=== PATIENT | female | born 1975 | race Caucasian/White ===

== ENCOUNTER 2019-08-20 21:03 | Emergency (ER) | payer BC, OTHER, SELFPAY ==
[2019-08-20] MEDS ORDERED: Sodium Chloride 0.9% 1,000 ML IV SCH (21:15)
[2019-08-20] MEDS ORDERED: Sodium Chloride 0.9% 10 ML Syringe FLUSH PRN (21:15)
[2019-08-20 22:25] LABS: ACETAMINOPHEN 0 ug/mL (10-30)
--- NOTE | 2019-08-21 00:14 | EDM.PDOCBH ---
ED HPI GENERAL MEDICAL PROBLEM - General Chief Complaint: Behavioral/Psych Stated Complaint: overdose on pills Time Seen by Provider: 08/20/19 21:10 Source of Information: Reports: Patient, Family History Limitations: Reports: No Limitations - History of Present Illness INITIAL COMMENTS - FREE TEXT/NARRATIVE: The patient presents with her for an overdose. She admits to taking trazadone and lunesta about 5 tonight. Her came home around 7 and found her in the bed snoring. He checked on her later and she tried to get up but could not and urinated on the floor. She also urinated in the bed. She has been out of work for 5 months and has been depressed. She did take the medication to try to kill herself. She has a history of depression. She never tried to do this before. She has not been nausea and did not vomit. She has no pain anywhere. Onset: Sudden Duration: Hour(s): Severity: Moderate Improves with: Reports: None Worsens with: Reports: None Associated Symptoms: Reports: Confusion. Denies: Cough, Fever/Chills, Headaches , Nausea/Vomiting, Shortness of Breath - Related Data Allergies Allergy/AdvReac Type Severity Reaction Status Date / Time Penicillins Allergy Other Verified 08/20/19 21:54 Home Meds: Home Meds Escitalopram Oxalate [Lexapro] 20 mg PO DAILY 06/01/18 [History] Eszopiclone [Lunesta] 3 mg PO DAILY 06/01/18 [History] FLUoxetine [PROzac] 1,020 mg PO DAILY 08/20/19 [History] Nabumetone [Relafen Ds] 500 mg PO DAILY 08/20/19 [History] rOPINIRole [Requip] 1 mg PO BEDTIME 08/20/19 [History] traZODone HCl [Trazodone HCl] 50 mg PO BEDTIME 08/20/19 [History] Past Medical History HEENT History: Reports: Impaired Vision Other HEENT History: Wears glasses Respiratory History: Reports: Asthma Gastrointestinal History: Reports: Other (See Below) Other Gastrointestinal History: gastric bypass - Past Surgical History HEENT Surgical History: Reports: Tonsillectomy GI Surgical History: Reports: Bariatric Procedure, Cholecystectomy, Hernia, Abdominal Social & Family History - Tobacco Use Smoking Status *Q: Unknown Ever Smoked - Recreational Drug Use Recreational Drug Use: No ED ROS GENERAL - Review of Systems Review Of Systems: See Below Constitutional: Reports: Malaise, Weakness, Fatigue HEENT: Reports: No Symptoms Respiratory: Reports: No Symptoms Cardiovascular: Reports: No Symptoms Endocrine: Reports: No Symptoms GI/Abdominal: Reports: No Symptoms : Reports: No Symptoms Musculoskeletal: Reports: No Symptoms Neurological: Reports: Confusion ED EXAM, BEHAVIORAL HEALTH - Physical Exam Exam: See Below Exam Limited By: Other (sleepy) General Appearance: Other (sleepy but she will wake and answer questions and follow commands) Ears: Normal External Exam Nose: Normal Inspection Head: Atraumatic, Normocephalic Neck: Normal Inspection Respiratory/Chest: No Respiratory Distress, Lungs Clear, Normal Breath Sounds Cardiovascular: Regular Rate, Rhythm, No Edema, No Murmur GI/Abdominal: Soft, Non-Tender, No Organomegaly, No Mass Back Exam: Normal Inspection Extremities: Normal Inspection EKG INTERPRETATION EKG Date: 08/21/19 Time: 21:22 Rhythm: NSR Rate (Beats/Min): 76 [place]: Normal P-Wave: Present QRS: Normal ST-T: Normal QT: Normal COURSE, BEHAVIORAL HEALTH COMP - Course Vital Signs: Last Vital Signs Temp 97.2 F 08/20/19 21:49 Pulse 62 08/21/19 05:01 Resp 16 08/21/19 06:00 BP 89/69 L 08/21/19 05:00 Pulse Ox 95 08/21/19 05:01 Orders, Labs, Meds: Active Orders 24 hr Category Date Time Status Cardiac Monitoring [RC] . DIRECTED Care 08/20/19 21:15 Active EKG Documentation Completion [RC] ASDIRECTED Care 08/21/19 00:18 Active EKG Documentation Completion [RC] STAT Care 08/20/19 21:16 Active Peripheral IV Care [RC] . DIRECTED Care 08/20/19 21:16 Active Sodium Chloride 0.9% [Normal Saline] 1,000 ml Med 08/20/19 21:15 Active IV ASDIRECTED Sodium Chloride 0.9% [Saline Flush] Med 08/20/19 21:15 Active 10 ml FLUSH ASDIRECTED PRN Peripheral IV Insertion Adult [OM.PC] Stat Oth 08/20/19 21:15 Ordered EKG 12 Lead [EK] Stat Ther 08/21/19 00:18 Ordered Medication Orders Sodium Chloride (Normal Saline) 1,000 mls @ 125 mls/hr IV ASDIRECTED BRANDI Last Admin: 08/20/19 21:35 Dose: 125 mls/hr Sodium Chloride (Saline Flush) 10 ml FLUSH ASDIRECTED PRN PRN Reason: Keep Vein Open Last Admin: 08/20/19 21:35 Dose: 10 ml Laboratory Tests 08/20/19 08/20/19 08/20/19 Range/Units 21:21 21:21 21:21 WBC 5.02 (3.98-10.04) K/mm3 RBC 4.92 (3.98-5.22) M/mm3 Hgb 15.1 (11.2-15.7) gm/dl Hct 45.3 H (34.1-44.9) % MCV 92.1 (79.4-94.8) fl MCH 30.7 (25.6-32.2) pg MCHC 33.3 (32.2-35.5) g/dl RDW Std Deviation 39.7 (36.4-46.3) fL Plt Count 215 (182-369) K/mm3 MPV 11.6 (9.4-12.3) fl Neut % (Auto) 56.7 (34.0-71.1) % Lymph % (Auto) 34.9 (19.3-51.7) % Lipscomb % (Auto) 6.4 (4.7-12.5) % Eos % (Auto) 1.4 (0.7-5.8) Baso % (Auto) 0.4 (0.1-1.2) % Neut # (Auto) 2.85 (1.56-6.13) K/mm3 Lymph # (Auto) 1.75 (1.18-3.74) K/mm3 Lipscomb # (Auto) 0.32 (0.24-0.36) K/mm3 Eos # (Auto) 0.07 (0.04-0.36) K/mm3 Baso # (Auto) 0.02 (0.01-0.08) K/mm3 Sodium 145 (136-145) mEq/L Potassium 4.0 (3.5-5.1) mEq/L Chloride 106 (98-107) mEq/L Carbon Dioxide 27 (21-32) mEq/L Anion Gap 16.0 H (5-15) BUN 10 (7-18) mg/dL Creatinine 0.9 (0.55-1.02) mg/dL Est Cr Clr Drug Dosing TNP Estimated GFR (MDRD) > 60 (>60) mL/min BUN/Creatinine Ratio 11.1 L (14-18) Glucose 103 (74-106) mg/dL Calcium 10.0 (8.5-10.1) mg/dL Total Bilirubin 0.8 (0.2-1.0) mg/dL AST 17 (15-37) U/L ALT 21 (14-59) U/L Alkaline Phosphatase 96 (46-116) U/L Total Protein 7.7 (6.4-8.2) g/dl Albumin 4.6 (3.4-5.0) g/dl Globulin 3.1 gm/dL Albumin/Globulin Ratio 1.5 (1-2) TSH 3rd Generation 4.217 H (0.358-3.74) uIU/mL HCG, Qual Negative (NEGATIVE) Salicylates (2.8-20) mg/dL Urine Opiates Screen (SJANVM=784) Ur Buprenorphine Scrn (CUTOFF=10) Ur Oxycodone Screen (VIA7SL=879) Urine Methadone Screen (NGNGPZ=803) Ur Propoxyphene Screen (XTDPFG=714) Acetaminophen 0 L (10-30) ug/mL Ur Barbiturates Screen (YKGVGW=644) Ur Tricyclics Screen (OLIUCN=265) Ur Phencyclidine Scrn (CUTOFF=25) Ur Amphetamine Screen (UVKGQG=749) U Methamphetamines Scrn (SYHBXO=692) U Benzodiazepines Scrn (HJDANG=843) U Cocaine Metab Screen (EIERFQ=298) U Marijuana (THC) Screen (CUTOFF=50) Ethyl Alcohol 0.00 (0.00) gm% 08/20/19 08/21/19 Range/Units 21:21 05:38 WBC (3.98-10.04) K/mm3 RBC (3.98-5.22) M/mm3 Hgb (11.2-15.7) gm/dl Hct (34.1-44.9) % MCV (79.4-94.8) fl MCH (25.6-32.2) pg MCHC (32.2-35.5) g/dl RDW Std Deviation (36.4-46.3) fL Plt Count (182-369) K/mm3 MPV (9.4-12.3) fl Neut % (Auto) (34.0-71.1) % Lymph % (Auto) (19.3-51.7) % Lipscomb % (Auto) (4.7-12.5) % Eos % (Auto) (0.7-5.8) Baso % (Auto) (0.1-1.2) % Neut # (Auto) (1.56-6.13) K/mm3 Lymph # (Auto) (1.18-3.74) K/mm3 [place]comb # (Auto) (0.24-0.36) K/mm3 Eos # (Auto) (0.04-0.36) K/mm3 Baso # (Auto) (0.01-0.08) K/mm3 Sodium (136-145) mEq/L Potassium (3.5-5.1) mEq/L Chloride (98-107) mEq/L Carbon Dioxide (21-32) mEq/L Anion Gap (5-15) BUN (7-18) mg/dL Creatinine (0.55-1.02) mg/dL Est Cr Clr Drug Dosing Estimated GFR (MDRD) (>60) mL/min BUN/Creatinine Ratio (14-18) Glucose (74-106) mg/dL Calcium (8.5-10.1) mg/dL Total Bilirubin (0.2-1.0) mg/dL AST (15-37) U/L ALT (14-59) U/L Alkaline Phosphatase (46-116) U/L Total Protein (6.4-8.2) g/dl Albumin (3.4-5.0) g/dl Globulin gm/dL Albumin/Globulin Ratio (1-2) TSH 3rd Generation (0.358-3.74) uIU/mL HCG, Qual (NEGATIVE) Salicylates 0.7 L (2.8-20) mg/dL Urine Opiates Screen Negative (QWAWXZ=289) Ur Buprenorphine Scrn Negative (CUTOFF=10) Ur Oxycodone Screen Negative (RGV0IY=475) Urine Methadone Screen Negative (VRHUZK=031) Ur Propoxyphene Screen Negative (PLBCGS=114) Acetaminophen (10-30) ug/mL Ur Barbiturates Screen Negative (SKWMGB=346) Ur Tricyclics Screen Negative (EFNMIY=165) Ur Phencyclidine Scrn Negative (CUTOFF=25) Ur Amphetamine Screen Negative (KGMXAS=211) U Methamphetamines Scrn Negative (ORNFKS=080) U Benzodiazepines Scrn Negative (OGCEAL=739) U Cocaine Metab Screen Negative (IWOULX=013) U Marijuana (THC) Screen Negative (CUTOFF=50) Ethyl Alcohol (0.00) gm% Medications Generic Name Dose Route Start Last Admin Trade Name Freq PRN Reason Stop Dose Admin Sodium Chloride 1,000 mls @ 125 mls/hr 08/20/19 21:15 08/20/19 21:35 Normal Saline IV 125 mls/hr ASDIRECTED BRANDI Administration Sodium Chloride 10 ml 08/20/19 21:15 08/20/19 21:35 Saline Flush FLUSH 10 ml ASDIRECTED PRN Administration Keep Vein Open Re-Assessment/Re-Exam: I ordered an IV NS, labs and EKG. Her CBC looks good. Her anion gap was elevated at 16. Her TSH was elevated slightly at 4.217. Her HCG is negative. Her salicylates are normal. Her acetaminophen is 0. Her ETOH is 0. Her EKG shows a NSR with no acute changes. I called poison control and they wanted the EKG because her QT can get prolonged from the meds. The trazadone can cause hypotension and sleepiness. They recommended observing her for a few hours and get a repeat EKG. I will observe her until morning and find her a bed for inpatient psych. Her urine drug screen was negative. I have called [facility] in [place] and talked with Dr Abebe the psychiatrist scientist electronics and he accepted the patient. Departure - Departure Time of Disposition: 07:00 Disposition: DC/Tfer to Psych Hosp/Unit 65 Condition: Serious Clinical Impression: Depressive disorder, Suicide attempt Overdose Qualifiers: Encounter type: initial encounter Injury intent: intentional self-harm Qualified Code(s): T50.902A - Poisoning by unspecified drugs, medicaments and biological substances, intentional self-harm, initial encounter - Discharge Information Referrals: Rodriguez Stewart MD [Primary Care Provider] - Forms: ED Department Discharge Sepsis Event Note - Evaluation Sepsis Screening Result: No Definite Risk - Focused Exam Vital Signs: Vital Signs Temp Pulse Pulse Resp BP BP Pulse Ox 03/12/20 06:00 16 08/21/19 05:01 62 13 95 08/21/19 05:00 67 15 89/69 L 96 08/21/19 04:59 80 14 97 08/21/19 04:01 60 13 96 08/21/19 04:00 70 14 96/51 L 94 L 08/21/19 03:59 73 17 99 08/21/19 03:01 65 13 97 08/21/19 03:00 77 15 101/72 95 08/21/19 02:59 68 17 95 08/21/19 02:01 62 12 94 L 08/21/19 02:00 65 12 80/58 L 94 L 08/21/19 01:59 64 13 94 L 08/21/19 01:01 59 L 12 94/78 96 08/21/19 01:00 57 L 12 94 L 08/21/19 00:23 23 H 103/64 08/21/19 00:22 18 08/21/19 00:01 54 L 12 95 08/21/19 00:00 55 L 12 80/59 L 95 08/20/19 23:59 55 L 12 95 08/20/19 23:45 57 L 12 81/56 L 95 08/20/19 23:44 56 L 12 95 08/20/19 23:29 58 L 12 84/60 L 89 L 08/20/19 23:28 56 L 12 87 L 08/20/19 23:01 61 11 L 77/60 L 88 L 08/20/19 23:00 59 L 11 L 88 L 08/20/19 22:13 67 12 91 L 08/20/19 21:49 97.2 F 67 16 110/76 100 Date Exam was Performed: 08/21/19 Time Exam was Performed: 06:59 - My Orders Last 24 Hours: My Active Orders 08/20/19 21:15 Cardiac Monitoring [RC] . DIRECTED Sodium Chloride 0.9% [Normal Saline] 1,000 ml IV ASDIRECTED Sodium Chloride 0.9% [Saline Flush] 10 ml FLUSH ASDIRECTED PRN Peripheral IV Insertion Adult [OM.PC] Stat 08/20/19 21:16 EKG Documentation Completion [RC] STAT Peripheral IV Care [RC] . DIRECTED 08/21/19 00:18 EKG Documentation Completion [RC] ASDIRECTED EKG 12 Lead [EK] Stat - Assessment/Plan Last 24 Hours: My Active Orders 08/20/19 21:15 Cardiac Monitoring [RC] . DIRECTED Sodium Chloride 0.9% [Normal Saline] 1,000 ml IV ASDIRECTED Sodium Chloride 0.9% [Saline Flush] 10 ml FLUSH ASDIRECTED PRN Peripheral IV Insertion Adult [OM.PC] Stat 08/20/19 21:16 EKG Documentation Completion [RC] STAT Peripheral IV Care [RC] . DIRECTED 08/21/19 00:18 EKG Documentation Completion [RC] ASDIRECTED EKG 12 Lead [EK] Stat
[2019-08-21 07:41] VITALS: BP 104/72; PULSE 65
== END 2019-08-21 07:37 ==
LOC: JD.ED 21:03
DX: T43.212A Poisoning by selective serotonin and norepinephrine reuptake inhibitors, intentional self-harm, initial encounter (principal); Z88.0 Allergy status to penicillin; F32.9 Major depressive disorder, single episode, unspecified; J45.909 Unspecified asthma, uncomplicated; Z79.899 Other long term (current) drug therapy
CPT/HCPCS: 36415; 80053; 80306; 80307; 84443; 84703; 85025; 93005; 96360; 96361; 99285; J7030; 93010; 99284

== ENCOUNTER 2019-09-19 17:39 | Emergency (ER) | payer BC ==
--- NOTE | 2019-09-19 17:43 | EDM.PDOC ---
ED HPI GENERAL MEDICAL PROBLEM - General Chief Complaint: Neurological Problem Stated Complaint: [facility] Time Seen by Provider: 09/19/19 17:42 Source of Information: Reports: Patient, EMS History Limitations: Reports: No Limitations - History of Present Illness INITIAL COMMENTS - FREE TEXT/NARRATIVE: The patient presents by [facility] for a seizure. She was at [facility] and she told her that she had a funny taste in her mouth and she went to get a drink. She then passed out and had a tonic, clonic seizure that lasted about a minutes. She has never had a seizure before. She is on medications for depression. August 20 she overdoses on some of her medications to try to kill herself. She was sent to [facility] in [place] and she had some med changes. She has some bleeding from her head and some blood from her left ear. She has a headache but no neck pain. She has no fever , chills, cough, congestion, runny nose, chest pain, shortness of breath, abdominal pain, nausea or vomiting. She has no numbness or weakness. Onset: Sudden Duration: Minutes: Location: Reports: Generalized Quality: Reports: Ache Severity: Moderate Improves with: Reports: None Worsens with: Reports: None Associated Symptoms: Reports: Headaches. Denies: Chest Pain, Cough, Fever/ Chills, Nausea/Vomiting, Shortness of Breath - Related Data Allergies Allergy/AdvReac Type Severity Reaction Status Date / Time Penicillins Allergy Other Verified 08/20/19 21:54 Home Meds: Home Meds Escitalopram Oxalate [Lexapro] 20 mg PO DAILY 06/01/18 [History] Eszopiclone [Lunesta] 3 mg PO DAILY 06/01/18 [History] FLUoxetine [PROzac] 20 mg PO DAILY 08/20/19 [History] Nabumetone [Relafen Ds] 500 mg PO DAILY 08/20/19 [History] rOPINIRole [Requip] 1 mg PO BEDTIME 08/20/19 [History] traZODone HCl [Trazodone HCl] 50 mg PO BEDTIME PRN 08/20/19 [History] Hydrocort/Neomycin/Polymyxin B [Cortisporin Otic Soln] 4 drop EARLF TID #1 bottle 09/19/19 [Rx] Iron Polysaccharides Complex [Ferrex 150] 150 mg PO ASDIRECTED 09/19/19 [History ] OLANZapine [Zyprexa] 7.5 mg PO BEDTIME 09/19/19 [History] Rhubarb Root Extract [Estroven Cmplt Menopause Rlf] 1 tab PO DAILY 09/19/19 [ History] Past Medical History HEENT History: Reports: Impaired Vision Other HEENT History: Wears glasses Respiratory History: Reports: Asthma Gastrointestinal History: Reports: Other (See Below) Other Gastrointestinal History: gastric bypass - Past Surgical History HEENT Surgical History: Reports: Tonsillectomy GI Surgical History: Reports: Bariatric Procedure, Cholecystectomy, Hernia, Abdominal ED ROS GENERAL - Review of Systems Review Of Systems: See Below Constitutional: Reports: No Symptoms HEENT: Reports: Other (Bleeding from left ear) Respiratory: Reports: No Symptoms Cardiovascular: Reports: No Symptoms Endocrine: Reports: No Symptoms GI/Abdominal: Reports: No Symptoms : Reports: No Symptoms Musculoskeletal: Reports: No Symptoms Skin: Reports: No Symptoms Neurological: Reports: Headache - Physical Exam Exam: See Below Exam Limited By: No Limitations General Appearance: Alert, No Apparent Distress Eye Exam: Bilateral Eye: EOMI Ears: Normal External Exam, Other (Bleeding from the left ear canal. There appears to be a laceration) Nose: Normal Inspection Head Exam: Other (1 cm laceration to the scalp) Neck: Normal Inspection, Supple, Non-Tender Respiratory/Chest: No Respiratory Distress, Lungs Clear, Normal Breath Sounds Cardiovascular: Regular Rate, Rhythm, No Edema, No Murmur GI/Abdominal: Soft, Non-Tender, No Organomegaly, No Mass Neuro Exam (Abbreviated): Alert, Oriented, No Motor/Sensory Deficits ED PROCEDURES - Laceration/Wound Repair Left Head Lac/wound length in cm: 1 Appearance: Subcutaneous Anesthetic Type: Topical (LET) Skin Prep: Saline Exploration/Debridement/Repair: Wound Explored, In a Bloodless Field, Explored to Base Closed with: Patrick # of Sutures: 3 Tetanus Status Addressed: Yes Complications: No EKG INTERPRETATION EKG Date: 09/19/19 Time: 18:00 Rhythm: NSR Rate (Beats/Min): 93 [place]: Normal P-Wave: Present QRS: Normal ST-T: Normal QT: Normal Course - Vital Signs Last Recorded V/S: Last Vital Signs Temp 97.5 F 09/19/19 17:42 Pulse 90 09/19/19 19:25 Resp 20 09/19/19 19:25 BP 102/76 09/19/19 19:25 Pulse Ox 96 09/19/19 19:25 - Orders/Labs/Meds Orders: Active Orders 24 hr Category Date Time Status Cardiac Monitoring [RC] . DIRECTED Care 09/19/19 17:46 Active EKG Documentation Completion [RC] STAT Care 09/19/19 17:47 Active Peripheral IV Care [RC] . DIRECTED Care 09/19/19 17:47 Active Ang Chest [CT] Stat Exams 09/19/19 18:46 Taken Head wo Cont [CT] Stat Exams 09/19/19 17:47 Taken DRUG SCREEN, URINE [URCHEM] Stat Lab 09/19/19 17:46 Ordered Sodium Chloride 0.9% [Normal Saline] 100 ml Med 09/19/19 19:00 Active IV ASDIRECTED Sodium Chloride 0.9% [Saline Flush] Med 09/19/19 17:46 Active 10 ml FLUSH ASDIRECTED PRN Sodium Chloride 0.9% [Saline Flush] Med 09/19/19 18:51 Active 10 ml FLUSH ONETIME PRN Peripheral IV Insertion Adult [OM.PC] Stat Oth 09/19/19 17:46 Ordered Medication Orders Sodium Chloride (Normal Saline) 100 mls @ 60 mls/hr IV ASDIRECTED BRANDI Last Admin: 09/19/19 19:08 Dose: 60 mls/hr Sodium Chloride (Saline Flush) 10 ml FLUSH ASDIRECTED PRN PRN Reason: Keep Vein Open Last Admin: 09/19/19 18:21 Dose: 10 ml Sodium Chloride (Saline Flush) 10 ml FLUSH ONETIME PRN PRN Reason: Keep Vein Open Last Admin: 09/19/19 19:08 Dose: 10 ml Labs: Laboratory Tests 09/19/19 09/19/19 09/19/19 Range/Units 17:56 17:56 17:56 WBC 8.77 (3.98-10.04) K/mm3 RBC 3.92 L (3.98-5.22) M/mm3 Hgb 11.8 D (11.2-15.7) gm/dl Hct 36.9 (34.1-44.9) % MCV 94.1 (79.4-94.8) fl MCH 30.1 (25.6-32.2) pg MCHC 32.0 L (32.2-35.5) g/dl RDW Std Deviation 41.3 (36.4-46.3) fL Plt Count 232 (182-369) K/mm3 MPV 11.1 (9.4-12.3) fl Neut % (Auto) 44.7 (34.0-71.1) % Lymph % (Auto) 46.4 (19.3-51.7) % [place] % (Auto) 6.0 (4.7-12.5) % Eos % (Auto) 1.9 (0.7-5.8) Baso % (Auto) 0.5 (0.1-1.2) % Neut # (Auto) 3.92 (1.56-6.13) K/mm3 Lymph # (Auto) 4.07 H (1.18-3.74) K/mm3 [place] # (Auto) 0.53 H (0.24-0.36) K/mm3 Eos # (Auto) 0.17 (0.04-0.36) K/mm3 Baso # (Auto) 0.04 (0.01-0.08) K/mm3 PT (9.7-12.0) SECONDS INR APTT (22-31) SECONDS D-Dimer, Quantitative 5.46 H (0.19-0.50) mg/L Sodium 143 (136-145) mEq/L Potassium 3.0 L (3.5-5.1) mEq/L Chloride 105 (98-107) mEq/L Carbon Dioxide 21 (21-32) mEq/L Anion Gap 20.0 H (5-15) BUN 17 (7-18) mg/dL Creatinine 0.9 (0.55-1.02) mg/dL Est Cr Clr Drug Dosing 60.82 mL/min Estimated GFR (MDRD) > 60 (>60) mL/min BUN/Creatinine Ratio 18.9 H (14-18) Glucose 93 (74-106) mg/dL Calcium 8.8 (8.5-10.1) mg/dL Magnesium 1.9 (1.8-2.4) mg/dl Total Bilirubin 0.3 (0.2-1.0) mg/dL AST 25 (15-37) U/L ALT 28 (14-59) U/L Alkaline Phosphatase 81 (46-116) U/L Troponin I < 0.017 (0.00-0.056) ng/mL Total Protein 6.5 (6.4-8.2) g/dl Albumin 3.7 (3.4-5.0) g/dl Globulin 2.8 gm/dL Albumin/Globulin Ratio 1.3 (1-2) HCG, Qual (NEGATIVE) Ethyl Alcohol 0.00 (0.00) gm% 09/19/19 09/19/19 Range/Units 17:56 17:56 WBC (3.98-10.04) K/mm3 RBC (3.98-5.22) M/mm3 Hgb (11.2-15.7) gm/dl Hct (34.1-44.9) % MCV (79.4-94.8) fl MCH (25.6-32.2) pg MCHC (32.2-35.5) g/dl RDW Std Deviation (36.4-46.3) fL Plt Count (182-369) K/mm3 MPV (9.4-12.3) fl Neut % (Auto) (34.0-71.1) % Lymph % (Auto) (19.3-51.7) % [place] % (Auto) (4.7-12.5) % Eos % (Auto) (0.7-5.8) Baso % (Auto) (0.1-1.2) % Neut # (Auto) (1.56-6.13) K/mm3 Lymph # (Auto) (1.18-3.74) K/mm3 [place] # (Auto) (0.24-0.36) K/mm3 Eos # (Auto) (0.04-0.36) K/mm3 Baso # (Auto) (0.01-0.08) K/mm3 PT 10.7 (9.7-12.0) SECONDS INR 0.98 APTT 22 (22-31) SECONDS D-Dimer, Quantitative (0.19-0.50) mg/L Sodium (136-145) mEq/L Potassium (3.5-5.1) mEq/L Chloride (98-107) mEq/L Carbon Dioxide (21-32) mEq/L Anion Gap (5-15) BUN (7-18) mg/dL Creatinine (0.55-1.02) mg/dL Est Cr Clr Drug Dosing mL/min Estimated GFR (MDRD) (>60) mL/min BUN/Creatinine Ratio (14-18) Glucose (74-106) mg/dL Calcium (8.5-10.1) mg/dL Magnesium (1.8-2.4) mg/dl Total Bilirubin (0.2-1.0) mg/dL AST (15-37) U/L ALT (14-59) U/L Alkaline Phosphatase (46-116) U/L Troponin I (0.00-0.056) ng/mL Total Protein (6.4-8.2) g/dl Albumin (3.4-5.0) g/dl Globulin gm/dL Albumin/Globulin Ratio (1-2) HCG, Qual Negative (NEGATIVE) Ethyl Alcohol (0.00) gm% Meds: Medications Generic Name Dose Route Start Last Admin Trade Name Freq PRN Reason Stop Dose Admin Sodium Chloride 100 mls @ 60 mls/hr 09/19/19 19:00 09/19/19 19:08 Normal Saline IV 60 mls/hr ASDIRECTED BRANDI Administration Sodium Chloride 10 ml 09/19/19 17:46 09/19/19 18:21 Saline Flush FLUSH 10 ml ASDIRECTED PRN Administration Keep Vein Open Sodium Chloride 10 ml 09/19/19 18:51 09/19/19 19:08 Saline Flush FLUSH 10 ml ONETIME PRN Administration Keep Vein Open Discontinued Medications Generic Name Dose Route Start Last Admin Trade Name Freq PRN Reason Stop Dose Admin Sodium Chloride 1,000 mls @ 1,000 mls/hr 09/19/19 18:58 09/19/19 19:02 Normal Saline IV 09/19/19 19:57 1,000 mls/hr ONETIME ONE Administration Iopamidol 100 ml 09/19/19 18:51 09/19/19 19:08 Isovue-370 (76%) IVPUSH 09/19/19 18:52 100 ml ONETIME ONE Administration Lidocaine/Tetracaine 1 ml 09/19/19 18:13 09/19/19 18:24 Let Soln TOP 09/19/19 18:14 1 ml ONETIME ONE Administration - Re-Assessments/Exams Free Text/Narrative Re-Assessment/Exam: 09/19/19 18:00 I ordered an IV saline lock, EKG, CT of her head, and labs. 09/19/19 18:43 Her EKG shows a NSR with no acute changes. Her CBC is negative. Her K was low at 3. Her anion gap was elevated at 20. Her magnesium is normal. Her troponin is negative. Her D-dimer was elevated at 5.46. 09/19/19 19:38 I closed the laceration with patrick. 09/19/19 20:[address] of her head shows acute fracture of the left tympanic plate/posterior wall of the left mandibular fossa. Associated small amount of hemorrhage in the left external auditory canal. No evidence of acute intracranial injury. The CT of her chest shows no central or segmental pulmonary embolus. Possible mild pulmonary edema. Cholecystectomy. Dilated common bile duct measuring up to 1.7cm. Additional nonemergent CT findings above. I called [facility] and talked to the ENT doctor and he recommended cortisporin drops TID. I also talked with Dr Fritz the neurologist [facility] and he recommended an outpatient EEG and MRI. He also wanted her to talk with her psychiatrist about her meds. She may need to stop one. Departure - Departure Time of Disposition: 20:20 Disposition: Home, Self-Care 01 Condition: Good Clinical Impression: Seizure Laceration of ear canal Qualifiers: Encounter type: initial encounter Laterality: left Qualified Code(s): S01.312A - Laceration without foreign body of left ear, initial encounter - Discharge Information *PRESCRIPTION DRUG MONITORING PROGRAM REVIEWED*: Not Applicable *COPY OF PRESCRIPTION DRUG MONITORING REPORT IN PATIENT SONIA: Not Applicable Prescriptions: Hydrocort/Neomycin/Polymyxin B [Cortisporin Otic Soln] 4 drop EARLF TID #1 bottle Referrals: PCP,None [Primary Care Provider] - Rodriguez Stewart MD [Physician] - 1 Week Anshu Syed MD [Ordering Only Provider] - 2 Weeks Forms: ED Department Discharge Additional Instructions: Take your medications as prescribed. Call your psychiatrist next week and let them know what happened and see if they have any recommendations. Get plenty of rest and avoid alcohol. I have ordered an MRI of you brain. Someone should be calling you with a time for that. Follow up with Dr Fritz the neurologist at [facility] and get an EEG. Someone should contact you about those appointments. If you do not hear from someone by Sunday please call. Use the cortisporin drops 4 drops in the left ear 3 times per day and follow up with ENT at [facility]. You will need to call Sunday to make that appointment. Do not drive until you are cleared. Avoid taking a bath or swimming by yourself. Please return if you are worse. Sepsis Event Note - Focused Exam Vital Signs: Vital Signs Temp Pulse Resp BP Pulse Ox 09/19/19 19:25 90 20 102/76 96 09/19/19 17:42 97.5 F 60 18 112/69 95 Date Exam was Performed: 09/19/19 Time Exam was Performed: 20:04 - My Orders Last 24 Hours: My Active Orders 09/19/19 17:46 Cardiac Monitoring [RC] . DIRECTED DRUG SCREEN, URINE [URCHEM] Stat Sodium Chloride 0.9% [Saline Flush] 10 ml FLUSH ASDIRECTED PRN Peripheral IV Insertion Adult [OM.PC] Stat 09/19/19 17:47 EKG Documentation Completion [RC] STAT Peripheral IV Care [RC] . DIRECTED Head wo Cont [CT] Stat 09/19/19 18:46 Ang Chest [CT] Stat 09/19/19 18:51 Sodium Chloride 0.9% [Saline Flush] 10 ml FLUSH ONETIME PRN 09/19/19 19:00 Sodium Chloride 0.9% [Normal Saline] 100 ml IV ASDIRECTED - Assessment/Plan Last 24 Hours: My Active Orders 09/19/19 17:46 Cardiac Monitoring [RC] . DIRECTED DRUG SCREEN, URINE [URCHEM] Stat Sodium Chloride 0.9% [Saline Flush] 10 ml FLUSH ASDIRECTED PRN Peripheral IV Insertion Adult [OM.PC] Stat 09/19/19 17:47 EKG Documentation Completion [RC] STAT Peripheral IV Care [RC] . DIRECTED Head wo Cont [CT] Stat 09/19/19 18:46 Ang Chest [CT] Stat 09/19/19 18:51 Sodium Chloride 0.9% [Saline Flush] 10 ml FLUSH ONETIME PRN 09/19/19 19:00 Sodium Chloride 0.9% [Normal Saline] 100 ml IV ASDIRECTED
[2019-09-19] MEDS ORDERED: Sodium Chloride 0.9% 10 ML Syringe FLUSH PRN ×2 (17:46→18:51)
[2019-09-19] MEDS ORDERED: Lidocaine/EPINEPHrine/Tetracaine Soln 1 ML TOP ONE (18:13)
[2019-09-19] MEDS ORDERED: Iopamidol 755 Mg/ML 100 ML Bottle IVPUSH ONE (18:51)
[2019-09-19] MEDS ORDERED: Sodium Chloride 0.9% 1,000 ML IV ONE (18:58)
[2019-09-19] MEDS ORDERED: Sodium Chloride 0.9% 100 ML IV SCH (19:00)
[2019-09-19 21:00] VITALS: BP 109/82; PULSE 91
--- NOTE | 2019-09-21 10:49 | CT ---
Head CT Technique: Multiple axial sections through the brain were obtained. Intravenous contrast was not utilized. Comparison: No prior intracranial imaging is available. Findings: Scalp injury is seen posteriorly. Equivocal fracture within the posterior mandibular fossa noted on the left side. Thin section CT would be needed to confirm this finding if clinically indicated. Visualized paranasal sinuses and mastoid sinuses are clear. Ventricles along with basal cisterns and sulci over the convexities are within normal limits for the patient's age. No abnormal parenchymal densities are seen. No evidence of intracranial hemorrhage. No midline shift or mass effect is appreciated. Impression: 1. Equivocal fracture within the posterior mandibular fossa on the left side. Thin section CT study through the temporal bones would be needed to confirm if clinically indicated. Please correlate if patient is symptomatic to this area. 2. Scalp injury. 3. No acute intracranial abnormality is appreciated. Diagnostic code #3 Agree with preliminary report issued by [facility] ([facility] preliminary report dictated on 09/19/19, 8:48 PM Central Daylight Time) Study was dictated in MDT
--- NOTE | 2019-09-21 10:49 | CT ---
CT chest Technique: Multiple axial sections through the chest were obtained. Intravenous contrast was not utilized. Comparison: Prior chest x-ray of 11/07/15. Findings: Pulmonary arteries are well-opacified. No filling defects are seen to indicate pulmonary embolism. Aorta shows no aneurysm. Mediastinum shows no adenopathy. No axillary adenopathy is seen. No pericardial thickening is noted. Previous cholecystectomy as well as previous gastric surgery is seen within the upper abdomen. Common bile duct is slightly dilated most likely residual from prior cholecystectomy. No pleural effusions are appreciated. Lungs show no acute parenchymal change. Impression: 1. No findings of pulmonary embolism. 2. Nothing acute is definitely appreciated on CT study of the chest. Diagnostic code #2 I agree with preliminary report issued by [facility] ([facility] preliminary report dictated on 09/19/19, 8:52 PM Central Daylight Time) Study was dictated in MDT
== END 2019-09-19 20:45 | disposition home or self-care (01) ==
LOC: JD.ED 17:39
DX: R56.9 Unspecified convulsions (principal); S01.312A Laceration without foreign body of left ear, initial encounter; S01.01XA Laceration without foreign body of scalp, initial encounter; J45.909 Unspecified asthma, uncomplicated; Z88.0 Allergy status to penicillin; Z79.899 Other long term (current) drug therapy; X58.XXXA Exposure to other specified factors, initial encounter
CPT/HCPCS: 12001; 36415; 70450; 71275; 80053; 80307; 83735; 84484; 84703; 85025; 85379; 85610; 85730; 93005; 96360; 99285; J7030; J7050; Q9967; 93010; 99283

== ENCOUNTER 2019-11-15 18:50 | Emergency (ER) | payer BC, MEDICAID ==
[2019-11-15 19:05] VITALS: BP 104/70; PULSE 101
--- NOTE | 2019-11-15 19:28 | EDM.PDOC ---
ED HPI GENERAL MEDICAL PROBLEM - General Chief Complaint: Neurological Problem Stated Complaint: DIZZY SPELLS OF AND ON Time Seen by Provider: 11/15/19 19:00 Source of Information: Reports: Patient, Family (Mother) History Limitations: Reports: No Limitations - History of Present Illness INITIAL COMMENTS - FREE TEXT/NARRATIVE: Ms. Ahumada is a very pleasant 44-year-old woman with a past medical history significant for a possible seizure suffered 09/19/2019 after the Depakote, that she had been taking for treatment of her bipolar affect of disorder was discontinued on 09/12/2019, resulting in a fall and a skull fracture, however, a subsequent EEG was negative for epileptiform activity. She also has a history of both depression and anxiety, all treated with Prozac. She now presents the ED stating that she has been experiencing symptoms of positional vertigo on and off today. Her symptoms resolve if she remains still, but increase if she moves around, particularly if she tries to ambulate. She states that she fell around 9:00 this morning as a result of her vertigo, but was uninjured. She denies feeling lightheaded, and has not suffered syncope. She denies having associated nausea. No prior history of vertigo. Here in the ED, the patient is initially found to be slightly tachycardic at 101 bpm, otherwise, she is hemodynamically stable, afebrile, saturating 98% on room air. The patient states that she did not take any [id number] or home remedies to attempt to treat her symptoms prior to coming to the ED today. Other than today's vertigo, the patient denies recent fever, chills, sore throat , ear pain, nasal or sinus congestion, cough, dyspnea, chest pain, palpitations , nausea, vomiting, constipation, diarrhea, abdominal pain, urinary symptoms, recent weight gain or weight loss, recent bloody bowel movements or black bowel movements, recent joint aches, headaches, or rashes. The patient's PCP is Dr. Rodriguez Stewart. She does not recall the name of her Neurologist at [facility]. - Related Data Allergies Allergy/AdvReac Type Severity Reaction Status Date / Time Penicillins Allergy Other Verified 11/15/19 19:03 Home Meds: Home Meds Escitalopram Oxalate [Lexapro] 20 mg PO DAILY 06/01/18 [History] Eszopiclone [Lunesta] 3 mg PO DAILY 06/01/18 [History] FLUoxetine [PROzac] 20 mg PO DAILY 08/20/19 [History] Nabumetone [Relafen Ds] 500 mg PO DAILY 08/20/19 [History] rOPINIRole [Requip] 1 mg PO BEDTIME 08/20/19 [History] traZODone HCl [Trazodone HCl] 50 mg PO BEDTIME PRN 08/20/19 [History] Hydrocort/Neomycin/Polymyxin B [Cortisporin Otic Soln] 4 drop EARLF TID #1 bottle 09/19/19 [Rx] Iron Polysaccharides Complex [Ferrex 150] 150 mg PO ASDIRECTED 09/19/19 [History ] OLANZapine [Zyprexa] 7.5 mg PO BEDTIME 09/19/19 [History] Rhubarb Root Extract [Estroven Cmplt Menopause Rlf] 1 tab PO DAILY 09/19/19 [ History] Past Medical History HEENT History: Reports: Impaired Vision (wears glasses) Cardiovascular History: Reports: High Cholesterol Respiratory History: Reports: Asthma (suspected, never tested) Musculoskeletal History: Reports: Fracture (skull fx 09/19/19) Neurological History: Reports: Seizure (possible 09/19/19; EEG neg) Psychiatric History: Reports: Anxiety, Bipolar, Depression, Suicide Attempt - Past Surgical History HEENT Surgical History: Reports: Oral Surgery (wisdom teeth extraction), Tonsillectomy GI Surgical History: Reports: Bariatric Procedure (laparoscopic gastric bypass 2008), Cholecystectomy (2011), Hernia, Abdominal (incisional) Musculoskeletal Surgical History: Reports: Other (See Below) (Bilateral bunionectomy) Social & Family History - Tobacco Use Smoking Status *Q: Never Smoker - Caffeine Use Caffeine Use: Reports: Coffee - Alcohol Use Alcohol Use History: Yes Alcohol Use Frequency: Socially - Recreational Drug Use Recreational Drug Use: No - Living Situation & Occupation Living situation: Reports: Single, Alone Occupation: Unemployed ED ROS GENERAL - Review of Systems Review Of Systems: Comprehensive ROS is negative, except as noted in HPI. ED EXAM, NEURO - Physical Exam Exam: See Below Exam Limited By: No Limitations General Appearance: Alert, WD/WN, No Apparent Distress Eye Exam: Bilateral Eye: EOMI, Normal Inspection, PERRL Ears: Normal External Exam, Normal Canal, Hearing Grossly Normal, Normal TMs Nose: Normal Inspection, Normal Mucosa, No Blood Throat/Mouth: Normal Inspection, Normal Lips, Normal Teeth, Normal Gums, Normal Oropharynx, Normal Voice, No Airway Compromise Head Exam: Atraumatic, Normocephalic Neck: Normal Inspection, Supple, Non-Tender, Full Range of Motion. No: Lymphadenopathy (L), Lymphadenopathy (R) Respiratory/Chest: No Respiratory Distress, Lungs Clear, Normal Breath Sounds, No Accessory Muscle Use Cardiovascular: Normal Peripheral Pulses, Regular Rate, Rhythm, No Edema, No Gallop, No JVD, No Murmur, No Rub GI/Abdominal: Normal Bowel Sounds, Soft, Non-Tender, No Organomegaly, No Distention, No Abnormal Bruit, No Mass (Female) Exam: Deferred Rectal (Female) Exam: Deferred Neurological: Alert, Normal Dorsiflexion, CN II-XII Intact, Normal Plantar Flexion, No Motor/Sensory Deficits, Oriented x 3, Other (No nystagmus induced with the Cipriano-Hallpike maneuver, either left or right, however, the patient reported induction of vertigo when arising (but not with laying back) from both the left and right positions during the [place]-Hallpike maneuver) Back Exam: Normal Inspection, Full Range of Motion, NT Extremities: Normal Inspection, Normal Range of Motion, No Pedal Edema, Normal Capillary Refill Psychiatric: Normal Affect Skin Exam: Warm, Dry, Intact, Normal Color, No Rash EKG INTERPRETATION EKG Date: 11/15/19 Time: 19:26 Rhythm: NSR Rate (Beats/Min): 92 Tillson: Normal P-Wave: Present QRS: Normal ST-T: Normal QT: Normal Comparison: No Change (09/19/2019) Course - Vital Signs Last Recorded V/S: Last Vital Signs Temp 36.7 C 11/15/19 18:58 Pulse 101 H 11/15/19 18:58 Resp 16 11/15/19 18:58 BP 104/70 11/15/19 19:03 Pulse Ox 98 11/15/19 18:58 Orthostatic Blood Pressure [ 90/79 Supine] Orthostatic Blood Pressure [ 104/80 Standing] - Orders/Labs/Meds Orders: Active Orders 24 hr Category Date Time Status EKG Documentation Completion [RC] STAT Care 11/15/19 19:21 Active Orthostatic Vital Signs [RC] ASDIRECTED Care 11/15/19 19:14 Active Labs: Laboratory Tests 11/15/19 11/15/19 11/15/19 Range/Units 19:36 19:36 19:36 WBC 4.68 (3.98-10.04) K/mm3 RBC 4.36 (3.98-5.22) M/mm3 Hgb 13.3 D (11.2-15.7) gm/dl Hct 40.6 (34.1-44.9) % MCV 93.1 (79.4-94.8) fl MCH 30.5 (25.6-32.2) pg MCHC 32.8 (32.2-35.5) g/dl RDW Std Deviation 39.5 (36.4-46.3) fL Plt Count 232 (182-369) K/mm3 MPV 11.1 (9.4-12.3) fl Neut % (Auto) 58.9 (34.0-71.1) % Lymph % (Auto) 30.8 (19.3-51.7) % Falls % (Auto) 8.8 (4.7-12.5) % Eos % (Auto) 1.3 (0.7-5.8) Baso % (Auto) 0.2 (0.1-1.2) % Neut # (Auto) 2.76 (1.56-6.13) K/mm3 Lymph # (Auto) 1.44 (1.18-3.74) K/mm3 Falls # (Auto) 0.41 H (0.24-0.36) K/mm3 Eos # (Auto) 0.06 (0.04-0.36) K/mm3 Baso # (Auto) 0.01 (0.01-0.08) K/mm3 D-Dimer, Quantitative 0.50 (0.19-0.50) mg/L Sodium 142 (136-145) mEq/L Potassium 3.9 (3.5-5.1) mEq/L Chloride 107 (98-107) mEq/L Carbon Dioxide 27 (21-32) mEq/L Anion Gap 11.9 (5-15) BUN 15 (7-18) mg/dL Creatinine 0.8 (0.55-1.02) mg/dL Est Cr Clr Drug Dosing 67.72 mL/min Estimated GFR (MDRD) > 60 (>60) mL/min BUN/Creatinine Ratio 18.8 H (14-18) Glucose 69 L (74-106) mg/dL Calcium 8.6 (8.5-10.1) mg/dL Phosphorus 3.8 (2.6-4.7) mg/dL Magnesium 1.9 (1.8-2.4) mg/dl Total Bilirubin 0.4 (0.2-1.0) mg/dL AST 14 L (15-37) U/L ALT 19 (14-59) U/L Alkaline Phosphatase 80 (46-116) U/L Total Protein 6.2 L (6.4-8.2) g/dl Albumin 3.4 (3.4-5.0) g/dl Globulin 2.8 gm/dL Albumin/Globulin Ratio 1.2 (1-2) TSH 3rd Generation 0.817 (0.358-3.74) uIU/mL HCG, Quant mIU/mL 11/15/19 Range/Units 19:36 WBC (3.98-10.04) K/mm3 RBC (3.98-5.22) M/mm3 Hgb (11.2-15.7) gm/dl Hct (34.1-44.9) % MCV (79.4-94.8) fl MCH (25.6-32.2) pg MCHC (32.2-35.5) g/dl RDW Std Deviation (36.4-46.3) fL Plt Count (182-369) K/mm3 MPV (9.4-12.3) fl Neut % (Auto) (34.0-71.1) % Lymph % (Auto) (19.3-51.7) % Falls % (Auto) (4.7-12.5) % Eos % (Auto) (0.7-5.8) Baso % (Auto) (0.1-1.2) % Neut # (Auto) (1.56-6.13) K/mm3 Lymph # (Auto) (1.18-3.74) K/mm3 Falls # (Auto) (0.24-0.36) K/mm3 Eos # (Auto) (0.04-0.36) K/mm3 Baso # (Auto) (0.01-0.08) K/mm3 D-Dimer, Quantitative (0.19-0.50) mg/L Sodium (136-145) mEq/L Potassium (3.5-5.1) mEq/L Chloride (98-107) mEq/L Carbon Dioxide (21-32) mEq/L Anion Gap (5-15) BUN (7-18) mg/dL Creatinine (0.55-1.02) mg/dL Est Cr Clr Drug Dosing mL/min Estimated GFR (MDRD) (>60) mL/min BUN/Creatinine Ratio (14-18) Glucose (74-106) mg/dL Calcium (8.5-10.1) mg/dL Phosphorus (2.6-4.7) mg/dL Magnesium (1.8-2.4) mg/dl Total Bilirubin (0.2-1.0) mg/dL AST (15-37) U/L ALT (14-59) U/L Alkaline Phosphatase (46-116) U/L Total Protein (6.4-8.2) g/dl Albumin (3.4-5.0) g/dl Globulin gm/dL Albumin/Globulin Ratio (1-2) TSH 3rd Generation (0.358-3.74) uIU/mL HCG, Quant 2.0 mIU/mL - Re-Assessments/Exams Free Text/Narrative Re-Assessment/Exam: 11/15/19 19:24 As above, the patient developed positional vertigo this morning. It was worse this morning, and has since improved, but was bad enough this morning that she fell. No associated nausea. Her neurologic examination is completely normal, and while she states that arising from either a left or right position during the Cipriano-Hallpike maneuvers induces vertigo, no nystagmus was seen during the entire [place]-Hallpike maneuver. For today's purposes, I have ordered a work-up that includes blood work, orthostatics, and an ECG. An emergency CT of the head is not indicated. 11/15/19 20:25 The patient is not orthostatic. 11/15/19 21:53 The patient's CBC is unremarkable. Her CMP is remarkable for blood glucose slightly depressed at 69, and is otherwise unremarkable. Her magnesium level is within normal limits at 1.9. Her phosphorus level is within normal limits at 3.8. Her TSH is within normal limits at 0.817. Her D-dimer is within normal limits at 0.50. Her quantitative hCG is slightly elevated at 2.0. Test results discussed with the patient and her mother. The patient states that she underwent early menopause about 5 or 6 years ago, and that is most likely the cause of her elevated hCG, that is, from her pituitary. Far less likely would be a tumor, such as a gestational trophoblastic neoplasm. Today's work-up does not explain the cause of her vertigo. The patient suspects , and I agree, that it may be related to her skull fracture suffered on 2019, that perhaps the fracture caused injury to her left vestibular apparatus. I recommended that the patient follow-up with her PCP, perhaps with her neurologist, for further evaluation. The patient stated that she already has an appointment to see Dr. Hurst this 11/18/2019. Departure - Departure Time of Disposition: 21:56 Disposition: Home, Self-Care 01 Condition: Good Clinical Impression: Positional vertigo - Discharge Information *PRESCRIPTION DRUG MONITORING PROGRAM REVIEWED*: Not Applicable *COPY OF PRESCRIPTION DRUG MONITORING REPORT IN PATIENT SONIA: Not Applicable Referrals: Rodriguez Stewart MD [Primary Care Provider] - Forms: ED Department Discharge Additional Instructions: You were seen in the emergency room after experiencing positional vertigo on and off today. Work-up in the ER included blood work, positional blood pressure checks, and an ECG. Your work-up found your quantitative hCG ( hormone) to be slightly elevated at 2.0. This is most likely due to your being postmenopausal, that is , it comes from your pituitary gland. Far less likely would be a tumor, such as a gestational trophoblastic neoplasm. The remainder of your work-up was unremarkable. You are not anemic. No electrolyte abnormalities were found. You are not dehydrated. You do not have a blood clot in your lungs. No abnormalities were found on your ECG. The cause of your vertigo has not been determined, but may be related to an injury of your left vestibular apparatus when you suffered a skull fracture on . We recommend that you follow-up with your PCP, Dr. Rodriguez Stewart, at your previously scheduled appointment this coming 11/18/2019. He may want to have you follow-up with your Neurologist at [facility], for further evaluation of your vertigo. If any other problems, please do not hesitate to return to the ER. Sepsis Event Note - Evaluation Sepsis Screening Result: No Definite Risk - Focused Exam Vital Signs: Vital Signs Temp Pulse Resp BP Pulse Ox 11/15/19 19:03 104/70 11/15/19 18:58 36.7 C 101 H 16 90/78 98 Date Exam was Performed: 11/15/19 Time Exam was Performed: 21:53 - My Orders Last 24 Hours: My Active Orders 11/15/19 19:14 Orthostatic Vital Signs [RC] ASDIRECTED 11/15/19 19:21 EKG Documentation Completion [RC] STAT - Assessment/Plan Last 24 Hours: My Active Orders 11/15/19 19:14 Orthostatic Vital Signs [RC] ASDIRECTED 11/15/19 19:21 EKG Documentation Completion [RC] STAT
== END 2019-11-15 22:15 | disposition home or self-care (01) ==
LOC: JD.ED 18:50
DX: H81.10 Benign paroxysmal vertigo, unspecified ear (principal); F31.9 Bipolar disorder, unspecified; F41.9 Anxiety disorder, unspecified; Z88.0 Allergy status to penicillin; Z79.899 Other long term (current) drug therapy
CPT/HCPCS: 36415; 80053; 83735; 84100; 84443; 84702; 85025; 85379; 93005; 93010; 99283; 99284-25

== ENCOUNTER 2019-12-21 14:09 | Emergency (ER) | payer MEDICAID | END 2019-12-21 18:05 | LOC: JD.ED 14:09 | DX: Z53.21 Procedure and treatment not carried out due to patient leaving prior to being seen by health care provider (principal) ==